=== PATIENT | female | born 1990 | race Caucasian/White ===

== ENCOUNTER 2017-05-07 20:50 | Emergency (ER) | payer OTHER ==
[2017-05-07 20:59] VITALS: BP 130/92; PULSE 62; RESP 16; TEMP 97.9; O2SAT 99
[2017-05-07] MEDS ORDERED: RABIES VACC, HUMAN DIPLOID/PF 2.5 UNIT VIAL (RABAVERT) IM ONE (21:51)
--- NOTE | 2017-05-07 21:57 | EDPHY ---
H & P Stated Complaint: poss rabies exposure Time Seen by Provider: 05/07/17 21:54 HPI/ROS: HPI: This is a 26-year-old female who presents with Chief Complaint: Exposure to bat while in condom Location: body Quality: Exposure Duration: Friday Signs and Symptoms: No fever, no chills, no bike, no chest pain, no shortness of breath, no abdominal pain Timing: Unknown Severity: Mild Context: Patient reports that she was in [place] [employer] when her bunk me found a bat within her netting around her bed and was bit by the bat. Patient did not get bit by the bat. Reports up-to-date on tetanus vaccination. She just [place] to the [place] it is requesting rabies vaccine Modifying Factors: None Comment: ROS: see HPI Constitutional: No fever, no chills, no weight loss Eyes: No blurred vision Respiratory: No shortness of breath, no cough Cardiovascular: No chest pain Gastrointestinal: No nausea, no vomiting, no diarrhea Genitourinary: No dysuria Extremities: No myalgias Neurologic: No weakness, no numbness Skin: No rashes Hematologic: No bruising, no bleeding MEDICAL/SURGICAL/SOCIAL HISTORY: Medical history: Generally healthy. Does not take any regular medications. Surgical history: Surgery Social history: Employed CONSTITUTIONAL: Pleasant well-appearing adult white female, awake and alert, no obvious distress HEENT: Atraumatic and normocephalic, PERRL, EOMI. Tympanic membranes clear. Oropharynx clear, no exudate and moist pink mucosa. Airway patent. No lymphadenopathy. No meningismus. Cardiovascular: Normal S1/S2, regular rate, regular rhythm, without murmur rub or gallop. PULMONARY/CHEST: Symmetrical and nontender. Clear to auscultation bilaterally. Good air movement. No accessory muscle usage. ABDOMEN: Soft, nondistended, nontender, no rebound, no guarding, no peritoneal signs, no masses or organomegaly. No CVAT. EXTREMITIES: 2/2 pulses, strength 5/5, no deformities, no clubbing, no cyanosis or edema. NEUROLOGICAL: no focal neuro deficits. GCS 15. SKIN: Warm and dry, no erythema. no rash. Good capillary refill. Source: Patient Exam Limitations: No limitations - Personal History LMP (Females 10-55): 1-7 Days Ago Current Tetanus/Diphtheria Vaccine: Yes Current Tetanus Diphtheria and Acellular Pertussis (TDAP): Yes - Medical/Surgical History Hx Asthma: No Hx Chronic Respiratory Disease: No Hx Diabetes: No Hx Cardiac Disease: No Hx Renal Disease: No Hx Cirrhosis: No Hx Alcoholism: No Hx HIV/AIDS: No Hx Splenectomy or Spleen Trauma: No Other PMH: oral surgery - Social History Smoking Status: Former smoker Constitutional: Initial Vital Signs Temperature (C) 36.6 C 05/07/17 20:56 Heart Rate 62 05/07/17 20:56 Respiratory Rate 16 05/07/17 20:56 Blood Pressure 130/92 H 05/07/17 20:56 O2 Sat (%) 99 05/07/17 20:56 O2 Delivery Mode Room Air Allergies/Adverse Reactions: No Known Allergies Allergy (Unverified 01/26/15 12:11) Home Medications: Medication Instructions Recorded Nuvaring Vaginal Ring 01/26/15 Medical Decision Making ED Course/Re-evaluation: Patient is not immunocompromised and has up-to-date tetanus booster. Rabies immunoglobulin not indicated as she did not get bit by the bat. She will receive rabies vaccine human diploid cell today in the ER and follow up with [facility] for her remaining series on day 3, day 7, and day 14. Differential Diagnosis: Differential diagnosis includes bat exposure and concern for rabies Departure - Departure Disposition: Home, Routine, Self-Care Clinical Impression: Exposure to bat without known bite Condition: Good Instructions: Rabies Vaccine (ED) Additional Instructions: Please call [facility] tomorrow. You will need to have your remaining vaccinations administered on day 3 ( May 10), day 7 (May 14), day 14 (May 21). Referrals: [facility] (ED,. [Edm Groups for Call Sched] - As per Instructions
[2017-05-07] MEDS ORDERED: RABIES IMMUNE GLOBULIN 300 UNIT/2 ML VIAL IM ONE (22:16)
== END 2017-05-07 23:04 | disposition home or self-care (01) ==
DX: Z20.3 Contact with and (suspected) exposure to rabies (principal); Z23 Encounter for immunization; Z87.891 Personal history of nicotine dependence

== ENCOUNTER 2017-05-10 14:27 | Emergency (ER) | payer OTHER ==
[2017-05-10 14:35] VITALS: BP 126/88; PULSE 71; RESP 17; TEMP 98.1; O2SAT 97
[2017-05-10] MEDS ORDERED: RABIES VACC, HUMAN DIPLOID/PF 2.5 UNIT VIAL (RABAVERT) IM ONE (14:36)
--- NOTE | 2017-05-10 14:58 | EDPHY ---
General - History Smoking Status: Former smoker Narrative: CHIEF COMPLAINT: Second dose of rabies post exposure prophylaxis HISTORY OF PRESENT ILLNESS: Patient presents for 2nd dose of her Rabavert administration. She was here on the 07 of May and received her rabies IgG in rabies immunization the 0 injections. She reports being in a room where bat for present while she was asleep. She denies any actual bite or contact with the bat that she knows of. She was seen and recommendation was made for post exposure prophylaxis. She received the day 0 injections with no problems. She is here for the day 3 injections. Tolerated the 0 injections. No complications. No other associated complaints or modifying factors. REVIEW OF SYSTEMS: Ten systems reviewed and are negative unless otherwise noted in the HPI PCP: None SPECIALISTS: None PAST MEDICAL HISTORY: None PAST SURGICAL HISTORY: Gumline surgery SOCIAL HISTORY: Nonsmoker. He works at a [employer] here locally FAMILY HISTORY: Noncontributory EXAMINATION General Appearance: Alert, no distress Head: normocephalic, atraumatic Eyes: Pupils equal and round, no conjunctival pallor or injection ENT, Mouth: Mucous membranes moist. No trismus Neck: Normal inspection Respiratory: Lungs are clear to auscultation. No wheezing rhonchi or crackles Cardiovascular: Regular rate and rhythm. No murmur Neurological: A&O, nonfocal, normal gait Skin: Warm and dry, no rash. No petechiae or purpura Extremities: Nontender, no pedal edema DIFFERENTIAL DIAGNOSES: Including but not limited to rabies post exposure prophylaxis MDM: 2:55 p.m. Visit for 2nd dose of Rabavert for post exposure prophylaxis. No actual bite. She is asymptomatic. No difficulty or complications from the day 0 intramuscular injections. She has instructions to return here on Friday for her day 7 dose as she is leaving [facility] that day for a week. She will contact the [facility] for the day 14 dose. No acute distress. No other complaints. Discharged in stable condition post injection. (Frederick Contreras) The patient was evaluated and managed by the physician technical services assistant. I have reviewed this chart and I agree with the findings and plan of care as documented , as indicated by my signature. I am the secondary supervising physician. ( Mary Moser) - Objective Vital Signs: Initial Vital Signs Temperature (C) 36.7 C 05/10/17 14:33 Heart Rate 71 05/10/17 14:33 Respiratory Rate 17 05/10/17 14:33 Blood Pressure 126/88 H 05/10/17 14:33 O2 Sat (%) 97 05/10/17 14:33 O2 Delivery Mode Room Air Allergies/Adverse Reactions: No Known Allergies Allergy (Verified 05/10/17 14:33) Home Medications: Medication Instructions Recorded Nuvaring Vaginal Ring 01/26/15 Medications Given: Discontinued Medications Rabies Vaccine Human Diploid Cell (Rabavert) 2.5 unit IM .ONCE ONE Stop: 05/10/17 14:37 Last Admin: 05/10/17 14:46 Dose: 2.5 unit Departure - Departure Disposition: Home, Routine, Self-Care Clinical Impression: Need for post exposure prophylaxis for rabies Condition: Good Instructions: Rabies Vaccine (By injection) Additional Instructions: 1. Contact the [facility] for further administrations 2. Return to ED for any adverse reactions 3. The on-call primary care physician information has been provided should you wish to establish with Referrals: [facility] (ED,. [Edm Groups for Call Sched] - As per Instructions Megan Warren MD [Medical Doctor] - As per Instructions
== END 2017-05-10 14:59 | disposition home or self-care (01) ==
DX: Z20.3 Contact with and (suspected) exposure to rabies (principal); Z23 Encounter for immunization; Z87.891 Personal history of nicotine dependence

== ENCOUNTER 2017-05-13 06:15 | Emergency (ER) | payer OTHER ==
[2017-05-13 06:25] VITALS: BP 120/85; PULSE 73; RESP 16; TEMP 98.2; O2SAT 96
[2017-05-13] MEDS ORDERED: RABIES VACC, HUMAN DIPLOID/PF 2.5 UNIT VIAL (RABAVERT) IM ONE (06:30)
--- NOTE | 2017-05-13 06:30 | EDPHY ---
H & P Stated Complaint: 3rd in rabies shot series needed, ID has no appts avail HPI/ROS: HPI CHIEF COMPLAINT: Need for rabies vaccination 3rd shot HISTORY OF PRESENT ILLNESS: Patient very pleasant 26-year-old female, was in [place] and there was a bat in her residence, she has already received rabies immunoglobulin as well as rabies vaccination. She is here for her 3rd shot. She was unable to get her shot of [facility] as they had no appointments inner full. She has no complaints. This is her 7 day shot. Today early. She tells me [facility] gave her permission for this. Past Medical History: No medical history Past Surgical History: [facility] surgery Social History: Denies daily use drugs alcohol tobacco products. Family History: Noncontributory. ROS REVIEW OF SYSTEMS: A comprehensive 10 point review of systems is otherwise negative aside from elements mentioned in the history of present illness. Exam Constitutional triage nursing summary reviewed, vital signs reviewed, awake/ alert. Eyes normal conjunctivae and sclera, EOMI, PERRLA. HENT normal inspection, atraumatic, moist mucus membranes, no epistaxis, neck supple/ no meningismus, no raccoon eyes. Respiratory clear to auscultation bilaterally, normal breath sounds, no respiratory distress, no wheezing. Cardiovascular rate normal, regular rhythm, no murmur, no edema, distal pulses normal. Gastrointestinal soft, non-tender, no rebound, no guarding, normal bowel sounds, no distension, no pulsatile mass. Genitourinary no CVA tenderness. Musculoskeletal no midline vertebral tenderness, full range of motion, no calf swelling, no tenderness of extremities, no meningismus, good pulses, neurovascularly intact. Skin pink, warm, & dry, no rash, skin atraumatic. Neurologic awake, alert and oriented x 3, AAOx3, moves all 4 extremities equally, motor intact, sensory intact, CN II-XII intact, normal cerebellar, normal vision, normal speech. Psychiatric normal mood/affect. Heme/Lymph/Immune no lymphadenopathy. Differential Diagnosis: Includes but is not limited to in a particular order acute need for rabies vaccination given possible bat exposure. Medical Decision Making: Plan for this patient will give 7 days shot early. Recommend further follow-up [facility] for her last shot a day 14. Source: Patient - Personal History LMP (Females 10-55): 8-14 Days Ago Current Tetanus/Diphtheria Vaccine: Yes - Medical/Surgical History Hx Asthma: No Hx Chronic Respiratory Disease: No Hx Diabetes: No Hx Cardiac Disease: No Hx Renal Disease: No Hx Cirrhosis: No Hx Alcoholism: No Hx HIV/AIDS: No Hx Splenectomy or Spleen Trauma: No Other PMH: PSHx: oral surgery. PMHx: denies - Social History Smoking Status: Former smoker Constitutional: Initial Vital Signs Temperature (C) 36.8 C 05/13/17 06:18 Heart Rate 73 05/13/17 06:18 Respiratory Rate 16 05/13/17 06:18 Blood Pressure 120/85 H 05/13/17 06:18 O2 Sat (%) 96 05/13/17 06:18 O2 Delivery Mode Room Air Allergies/Adverse Reactions: No Known Allergies Allergy (Verified 05/10/17 14:33) Home Medications: Medication Instructions Recorded NK [No Known Home Meds] 05/13/17 Departure - Departure Disposition: Home, Routine, Self-Care Clinical Impression: Rabies exposure, Need for rabies vaccination Condition: Good Instructions: Rabies Vaccine (ED), Rabies Immune Globulin (By injection), Rabies Vaccine (By injection) Additional Instructions: 1. Return emergency room if you have any worsening symptoms questions or concerns. 2. Please follow up with [facility] for you last shot. Referrals: NONE *PRIMARY CARE P,. [Primary Care Provider] - As per Instructions [facility] (ED,. [Edm Groups for Call Sched] - As per Instructions
== END 2017-05-13 06:49 | disposition home or self-care (01) ==
DX: Z20.3 Contact with and (suspected) exposure to rabies (principal); Z23 Encounter for immunization; Z87.891 Personal history of nicotine dependence